=== PATIENT | female | born 1950 | race American Indian/Alaskan Native ===

== ENCOUNTER 2022-07-20 17:11 | Emergency (ER) | payer MEDICARE ==
[2022-07-20] MEDS: MORPHINE 4 MG/1 ML INJ IV ONE (18:11)
[2022-07-20] MEDS: KETOROLAC 30 MG/1 ML INJ IV ONE (19:54)
--- NOTE | 2022-07-20 19:59 | Cat Scan Report ---
CT pelvis wo con INDICATION / CLINICAL INFORMATION: fall. TECHNIQUE: Axial, coronal and sagittal images All CT scans at this location are performed using CT dose reductio n for ALARA by means of automated exposure control. COMPARISON: None available. FINDINGS: There is severe degenerative change in left hip. Large osteophyte at the femoral head neck junction m edially. Significant loss of joint space appears new. Avascular necrosis is seen within the right fem oral head with some subchondral mild irregularity. Severe degenerative change of the right hip. Promi nent osteophytes on the right hip joint is well. The superior and inferior pubic rami appear intact. Advanced degenerative change at the acetabulum bilaterally. Visualized sacrum appears normal. Disc os teophytes and neuroforaminal narrowing at L4-L5. No large hematoma surrounding the joint space IMPRESSION: 1. Avascular necrosis of right femoral head with mild subchondral irregularity and superior joint spa ce narrowing in the right hip. No displaced fracture. Large osteophytes at the femoral head neck junc tion and acetabulum 2. Severe degenerative change left hip. There is a large osteophytes femoral head neck junction with severe joint space narrowing. No displaced fracture is seen. There is diffuse osteopenia. If there is extreme pain within the left hip and MRI could be performed for further evaluation for edema and miranda ateral hips. Osteopenia with limited examination on CT as well. 3. No large hematoma in the soft tissues. Clinical correlation. Signer Name: Gigi Lang MD Signed: 07/20/2022 7:54 PM Workstation Name: [id number]
--- NOTE | 2022-07-20 20:19 | Cat Scan Report ---
CT lumbar spine wo con INDICATION / CLINICAL INFORMATION: 71 years Female; fall. TECHNIQUE: Axial CT images of the lumbar spine were obtained. Sagittal and coronal reformatted images were prod uced. All CT scans at this location are performed using CT dose reduction for ALARA by means of autom ated exposure control. COMPARISON: None available. FINDINGS: POST-SURGICAL CHANGES: None. ALIGNMENT: No significant abnormality. VERTEBRAE: No signs of fracture. Vertebral bodies are grossly normal in height throughout. [id number] ANALYSIS: L1-2: Mild facet hypertrophy. L2-3: Mild disc bulge and facet hypertrophy. Small foraminal/extra foraminal disc protrusion on the left. Mild canal narrowing. Mild foraminal narrowing on the left. L3-4: Mild to moderate disc bulge. Moderate facet hypertrophy. Mild to moderate thecal sac narrowing seen, a component of which is related epidural fat. Mild to moderate foraminal narrowing bilaterally without impingement. L4-5: Moderate disc bulge. Moderate facet and borderline ligamentum flavum hypertrophy. Moderate the kenney sac narrowing seen, a component of which is related epidural fat. Moderate to marked foraminal na rrowing on the left from spondylosis and facet hypertrophy , encroachment upon and flattening of the left L4 nerve. Similar findings to lesser degree on the right, which could affect the right L4 nerve. L5-S1: Mild disc bulge and [id number]-pt-[id number] facet hypertrophy. Mild foraminal narrowing. PARASPINAL SOFT TISSUES: No significant abnormality. ADDITIONAL FINDINGS: Atherosclerotic disease seen in the aorta and its branches. 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 IMPRESSION: 1. No signs of acute bony trauma to the lumbar spine. 2. Degenerative changes as described above. Most marked findings appear to be at L4-5. Please correla te with dermatomal distribution of patient's symptoms, if present. Signer Name: Arash Gautam MD, III Signed: 07/20/2022 8:14 PM Workstation Name: [id number]
--- NOTE | 2022-07-20 20:32 | Emergency Department Report ---
ED Fall HPI - General Chief Complaint: Fall Stated Complaint: FALL Time Seen by Provider: 07/20/22 17:30 Source: patient, EMS Mode of arrival: Stretcher Limitations: No Limitations - History of Present Illness Initial Comments: PT ARRIVING FROM [facility] FOR [facility]. NEG LOC. C/O L HIP AND LOWER BACK PAIN. NO DEFORMITIES NOTED. PT PRESENTS ON BACKBOARD. MD Complaint: fall -: Sudden, hour(s) Fall From: standing When Fall Occurred: [address] Fall Occurred: other ([facility]) Loss of Consciousness: none Prolonged Down Time?: no Symptoms Prior to Fall: none Location: back, pelvis Location - Extremities: Left: Thigh, Right: Thigh Severity: moderate Severity scale (0 -10): 5 Quality: dull Context: tripped/slipped Associated Symptoms: denies: denies, headache, neck pain - Related Data Allergies Allergy/AdvReac Type Severity Reaction Status Date / Time phenytoin [From Dilantin] AdvReac Unknown Verified 07/20/22 17:24 ED Review of Systems ROS: Stated complaint: FALL Other details as noted in HPI Constitutional: denies: chills, fever Eyes: denies: eye pain, eye discharge, vision change ENT: denies: ear pain, throat pain Respiratory: denies: cough, shortness of breath, wheezing Cardiovascular: denies: chest pain, palpitations Endocrine: no symptoms reported Gastrointestinal: denies: abdominal pain, nausea, diarrhea Genitourinary: denies: urgency, dysuria, discharge Musculoskeletal: denies: back pain, joint swelling, arthralgia Skin: denies: rash, lesions Neurological: denies: headache, weakness, paresthesias Psychiatric: denies: anxiety, depression Hematological/Lymphatic: denies: easy bleeding, easy bruising ED Past Medical Hx - Past Medical History Previous Medical History?: Yes Hx Hypertension: Yes Hx Arthritis: Yes Additional medical history: hypothyroidism - Surgical History Past Surgical History?: Yes Additional Surgical History: bilat knee replacement - Social History Smoking Status: Never Smoker Substance Use Type: None ED Physical Exam - General Limitations: No Limitations General appearance: alert, in no apparent distress - Head Head exam: Present: atraumatic, normocephalic - Eye Eye exam: Present: normal appearance - ENT ENT exam: Present: mucous membranes moist - Neck Neck exam: Present: normal inspection - Respiratory Respiratory exam: Present: normal lung sounds bilaterally. Absent: respiratory distress - Cardiovascular Cardiovascular Exam: Present: regular rate, normal rhythm. Absent: systolic murmur, diastolic murmur, rubs, gallop - GI/Abdominal GI/Abdominal exam: Present: soft, normal bowel sounds - Extremities Exam Extremities exam: Present: normal inspection - Expanded Lower Extremity Exam Left Hip exam: Present: tenderness - Back Exam Back exam: Present: tenderness, vertebral tenderness - Neurological Exam Neurological exam: Present: alert, oriented X3 - Psychiatric Psychiatric exam: Present: normal affect, normal mood - Skin Skin exam: Present: warm, dry, intact, normal color. Absent: rash ED Course Vital Signs 07/20/22 07/20/22 07/20/22 17:22 17:34 17:45 Temperature 98.9 F Pulse Rate 116 H 109 H Respiratory 18 11 L Rate Blood Pressure 188/123 Blood Pressure 170/118 [Left] O2 Sat by Pulse 96 97 97 Oximetry 07/20/22 07/20/22 18:01 18:09 Temperature Pulse Rate 111 H Respiratory 12 16 Rate Blood Pressure 195/108 Blood Pressure [Left] O2 Sat by Pulse 97 98 Oximetry Critical care attestation.: If time is entered above; I have spent that time in minutes in the direct care of this critically ill patient, excluding procedure time. ED Disposition Clinical Impression: Fall, Back pain, Arthritis Disposition: 01 HOME / SELF CARE / HOMELESS Is pt being admited?: No Does the pt Need Aspirin: No Condition: Stable Referrals: PRIMARY CARE, [Primary Care Provider] - 3-5 Days
[2022-07-20 22:14] VITALS: BP 189/96
== END 2022-07-20 22:14 | disposition home or self-care (01) ==
LOC: ED 17:11
DX: M54.50 Low back pain, unspecified (principal); M19.90 Unspecified osteoarthritis, unspecified site; M25.552 Pain in left hip; I10 Essential (primary) hypertension; W19.XXXA Unspecified fall, initial encounter; Y93.89 Activity, other specified; Y92.89 Other specified places as the place of occurrence of the external cause; Y99.8 Other external cause status
CPT/HCPCS: 72131; 72192; 96374; 96375; 99284; J1885; J2270